=== PATIENT | female | born 1950 ===

== ENCOUNTER → 2018-11-26 | Outpatient (CLI) | payer BC | END | disposition home or self-care (01) | LOC: LAB 15:25 | PROVIDERS: ATTEND Internal Medicine | DX: R05 Cough (principal); R52 Pain, unspecified | CPT/HCPCS: 87804 ==

== ENCOUNTER → 2019-06-06 | Outpatient (CLI) | payer BC ==
[2019-06-06 08:26] LABS: Basophils # (auto) 0.1 uL; Basophils % (auto) 0.8 % (0.0-2.0); Eosinophils # (auto) 0.1 uL; Eosinophils % (auto) 1.2 % (0.0-7.0); Hematocrit 33.9 % (36.0-46.0); Hemoglobin 11.1 g/dL (12.2-16.2); Lymphocytes # (auto) 3.3 uL; Lymphocytes % (auto) 43.6 % (10.0-50.0); Mean Corpuscular Hemoglobin 29.4 pg (28.0-32.0); Mean Corpuscular Hgb Conc. 32.9 g/dL (32.0-36.0); Mean Corpuscular Volume 89.4 fL (80.0-100.0); Monocytes # (auto) 0.7 uL; Monocytes % (auto) 8.8 % (0.0-12.0); Neutrophils # (auto) 3.4 uL; Neutrophils % (auto) 45.6 % (37.0-80.0); Nucleated Red Blood Cells % 0.1 %; Platelet Count (auto) 368 10^3/uL (140-450); Red Blood Cells 3.79 10^6/uL (4.0-5.20); Red Cell Distribution Width 12.8 % (11.8-14.3); White Blood Cell 7.5 10^3/uL (4.4-10.8)
[2019-06-06 08:59] LABS: Potassium 3.5 mmol/L (3.5-5.1)
[2019-06-06 09:25] LABS: BUN/Creatinine Ratio 33.8
[2019-06-06 09:27] LABS: Calcium 9.4 mg/dL (8.5-10.1)
[2019-06-06 09:28] LABS: Albumin 3.3 g/dL (3.4-5.0); Total Protein 7.8 g/dL (6.4-8.2); Uric Acid 5.3 mg/dL (2.6-6.0)
[2019-06-06 09:43] LABS: Bilirubin, Total 0.3 mg/dL (0.2-1.0)
== END | disposition home or self-care (01) ==
LOC: LAB 07:14
PROVIDERS: ATTEND Internal Medicine
DX: I10 Essential (primary) hypertension (principal); M25.50 Pain in unspecified joint
CPT/HCPCS: 36415; 80053; 80061; 84439; 84443; 84550; 85025; 85652; 86038; 86200; 86431

== ENCOUNTER → 2019-06-15 | Outpatient (CLI) | payer BC ==
[2019-06-15 12:06] LABS: Basophils # (auto) 0.1 uL; Basophils % (auto) 0.6 % (0.0-2.0); Eosinophils # (auto) 0.3 uL; Eosinophils % (auto) 3.1 % (0.0-7.0); Hematocrit 34.6 % (36.0-46.0); Hemoglobin 11.5 g/dL (12.2-16.2); Lymphocytes # (auto) 2.5 uL; Lymphocytes % (auto) 25.5 % (10.0-50.0); Mean Corpuscular Hgb Conc. 33.3 g/dL (32.0-36.0); Neutrophils # (auto) 5.9 uL; Neutrophils % (auto) 60.8 % (37.0-80.0); Nucleated Red Blood Cells % 0.1 %; Platelet Count (auto) 355 10^3/uL (140-450); Red Blood Cells 3.84 10^6/uL (4.0-5.20); White Blood Cell 9.8 10^3/uL (4.4-10.8)
== END | disposition home or self-care (01) ==
LOC: LAB 11:44
PROVIDERS: ATTEND Internal Medicine
DX: M25.50 Pain in unspecified joint (principal)
CPT/HCPCS: 36415; 85025; 85652; 86141

== ENCOUNTER → 2019-07-28 | Outpatient (CLI) | payer BC ==
[2019-07-28 10:59] LABS: Basophils # (auto) 0 uL; Basophils % (auto) 0.3 % (0.0-2.0); Eosinophils # (auto) 0.1 uL; Hematocrit 36.2 % (36.0-46.0); Lymphocytes % (auto) 9.3 % (10.0-50.0); Mean Corpuscular Hemoglobin 29.1 pg (28.0-32.0); Mean Corpuscular Hgb Conc. 33.2 g/dL (32.0-36.0); Mean Corpuscular Volume 87.6 fL (80.0-100.0); Monocytes # (auto) 0.7 uL; Monocytes % (auto) 6.6 % (0.0-12.0); Neutrophils # (auto) 9.3 uL; Neutrophils % (auto) 82.8 % (37.0-80.0); Platelet Count (auto) 360 10^3/uL (140-450); Red Blood Cells 4.14 10^6/uL (4.0-5.20); Red Cell Distribution Width 15.2 % (11.8-14.3); White Blood Cell 11.2 10^3/uL (4.4-10.8)
== END | disposition home or self-care (01) ==
LOC: LAB 10:34
PROVIDERS: ATTEND Internal Medicine
DX: M35.3 Polymyalgia rheumatica (principal)
CPT/HCPCS: 36415; 85025; 85652; 86141

== ENCOUNTER → 2020-03-06 | Outpatient (CLI) | payer BC ==
[2020-03-06 07:43] LABS: Basophils # (auto) 0 10 ^3/uL (0-0.2); Basophils % (auto) 0.3 % (0.0-2.0); Eosinophils # (auto) 0.2 10 ^3/uL (0-0.8); Eosinophils % (auto) 1.6 % (0.0-7.0); Hemoglobin 14.7 g/dL (12.2-16.2); Lymphocytes # (auto) 4.2 10 ^3/uL (0.4-5.4); Lymphocytes % (auto) 42.4 % (10.0-50.0); Mean Corpuscular Hemoglobin 31.1 pg (28.0-32.0); Mean Corpuscular Hgb Conc. 33.3 g/dL (32.0-36.0); Mean Corpuscular Volume 93.4 fL (80.0-100.0); Monocytes # (auto) 0.9 10 ^3/uL (0-1.3); Monocytes % (auto) 9.2 % (0.0-12.0); Neutrophils # (auto) 4.5 10 ^3/uL (1.6-8.6); Neutrophils % (auto) 46.5 % (37.0-80.0); Nucleated Red Blood Cells % 0.1 %; Platelet Count (auto) 254 10^3/uL (140-450); Red Blood Cells 4.72 10^6/uL (4.0-5.20); Red Cell Distribution Width 13.8 % (11.8-14.3); White Blood Cell 9.8 10^3/uL (4.4-10.8)
[2020-03-06 08:09] LABS: Albumin 3.8 g/dL (3.4-5.0); BUN/Creatinine Ratio 18.8; Calcium 9.2 mg/dL (8.5-10.1); Potassium 3.7 mmol/L (3.5-5.1)
[2020-03-06 08:15] LABS: Bilirubin, Total 0.6 mg/dL (0.2-1.0); Total Protein 7.6 g/dL (6.4-8.2)
[2020-03-08 10:18] LABS: Hepatitis B Surface Antigen Negative (Negative); Hepatitis C Antibody Negative (Negative)
[2020-03-08 10:26] LABS: Hepatitis B Core Total AB Positive
== END | disposition home or self-care (01) ==
LOC: LAB 07:20
PROVIDERS: ATTEND Internal Medicine Rheumatology
DX: M25.50 Pain in unspecified joint (principal)
CPT/HCPCS: 36415; 80053; 85025; 85652; 86704; 86803; 87340